=== PATIENT | female | born 1965 | race Caucasian/White ===

== ENCOUNTER 2018-01-15 09:50 | Outpatient (RCR) | payer SELFPAY ==
--- NOTE | 2018-02-07 19:10 | HP.PTEVAL_ITS ---
Patient's Visit Information HERBER LOMAX is a 52 year old F referred to Physical Therapy by Out of Town Doctor with a diagnosis of Low back pain. Date of Evaluation: 01/15/18 Physical Therapist: Salo Ortega - Visit Plan Frequency: 1-2x /Week Duration: 2-4 Weeks Plan: Start with REIL, progression of extension. Add in DN to reduce lumbar muscle spams. Add in neutral spine core strengthening as tolerated. - Subjective Subjective: Pt is here today for her initial evaluation with c/o of low back pain and radiation down her L leg. pt. reports having increased symptoms for ~3 weeks. Pt. reports having increased pain after doing a lot of gardening. Pt. reports trialing chiropractor without success. Pt. does report numbness down her L leg to her calf. No leg weakness noted. Pt. has increased symptoms with sitting and with static standing. Slightly better with walking. Pt. has worse symptoms in morning that loosens up after walking around. Pt. has not trialed any exercises at this point in time. Pt. has not had any imaging at this point in time. Pt. is hopeful to reduce symptoms in order to get back to all recreational activities without limitations. - Pain lumbar spine Pain Intensity (Out of 10): 3 Pain Intensity Range: 1, 6 - Objective POSTURE: Pt. has normal posture in stance. Pt. has equal wt. shift, no signs of lateral shift. PALPATION: Pt. has increased tenderness to palpation of lumbar paraspinals, hypombility noted at L3-L5 with increased symptoms. NEUROLOGICAL: Pt. has normal sensation to light and sharp touch of bilateral LEs. Pt. has 2+ patellar and achilles DTR bilaterally. Pt. is able to rise on heels and toes without issues. ROM: LUMBAR SPINE: flexion min loss increase NW, ext min loss increase NW, SB nil loss NE bilat, rotation nil loss bilat NE. Pt.had decreased symptoms with prone lying, improved further with prone prop and best with REIL. No symptoms in calf after REIL. MMT: Pt. has 5/5 BLE strength, core- fair. No signs of lateral hip weakness. GAIT: Pt. has mild increase in lateral hip sway , no pain with walking. Slight flexion noted. STAIRS: No issues, reciprocal pattern. - Goals Goal 1:: Pt. to be I with HEP. Goal Time Frame: 2-4 Weeks Goal 2:: Pt. to have no pain with walking. Goal Time Frame: 2-4 Weeks Goal 3:: Pt. to sleep throughout the night without increase in symptoms. Goal Time Frame: 4-6 Weeks Goal 4:: Pt. to have full lumbar ROM without increase in symptoms. Goal Time Frame: 2-4 Weeks Goal 5:: Pt. to resume all recreational activities without increase in symptoms. Goal Time Frame: 4-6 Weeks - Rehabilitation Potential Physical Therapy Diagnosis: Pt. has signs and symptoms consistent with lumbar derrangement. Pt. had positive results with REIL and with DN to reduce muscle spasms. Pt. would benefit from continued REIL, reduction in muscle gaurding and progression to core strengthening to reduce reoccurance. Rehabilitation Potential: Excellent - Anticipated Interventions Patient/Client Instruction: Educate patient on: Condition, Plan of Care, Risk Factors, Benefits of Fitness Program For the Purpose of:: To improve decision making, To facilitate caregiver knowledge, To improve self management, To prevent re-injury, To improve ability to perform tasks related to life management, To improve tolerance to ADL's Therapeutic Exercise to Include: Strength training, Power training, Endurance training, Body mechanics, Postural training, Flexibilty training, Passive ROM, Active ROM, Dynamic Lumbar Stabilization, Leti Exercises For the Purpose of:: To decrease pain, To increase ROM, To improve nutrient delivery to tissue, To increase oxygenation perfusion, To improve muscle performance and motor function, To improve ability to perform ADL's, To increase tolerance to activity/condition/position, To improve health of tissue, To decrease soft tissue restriction, To increase flexibility/ROM Manual Therapy Techniques to Include: Trigger point massage, Mobilization, Manipulation, Passive ROM, Functional dry needling, Soft tissue mobilization For the Purpose of:: To decrease pain, To increase ROM, To improve nutrient delivery to tissue, To increase oxygenation perfusion, To improve muscle performance and motor function Thank you for the opportunity to evaluate your patient. For Medicare and Medicare HMO plans, please review the plan of care and approve it. It will need to be FAXED BACK to us at [phone] for Medicare purposes. Please let me know if there are questions or concerns regarding this plan of care. Physician Signature: Date:
--- NOTE | 2018-06-01 13:04 | HP.PT.NRP ---
HP - Discharge Summary (1) - Patient Information HERBRE LOMAX was seen in my office for initial evaluation on 01/15/18. The following Plan of Care was established for this patient: Initial Frequency: 1-2x /Week Initial Duration: 2-4 Weeks - Anticipated Interventions Patient/Client Instruction: Educate patient on: Condition, Plan of Care, Risk Factors, Benefits of Fitness Program For the Purpose of:: To improve decision making, To facilitate caregiver knowledge, To improve self management, To prevent re-injury, To improve ability to perform tasks related to life management, To improve tolerance to ADL's Therapeutic Exercise to Include: Strength training, Power training, Endurance training, Body mechanics, Postural training, Flexibilty training, Passive ROM, Active ROM, Dynamic Lumbar Stabilization, Leti Exercises For the Purpose of:: To decrease pain, To increase ROM, To improve nutrient delivery to tissue, To increase oxygenation perfusion, To improve muscle performance and motor function, To improve ability to perform ADL's, To increase tolerance to activity/condition/position, To improve health of tissue, To decrease soft tissue restriction, To increase flexibility/ROM Manual Therapy Techniques to Include: Trigger point massage, Mobilization, Manipulation, Passive ROM, Functional dry needling, Soft tissue mobilization For the Purpose of:: To decrease pain, To increase ROM, To improve nutrient delivery to tissue, To increase oxygenation perfusion, To improve muscle performance and motor function This patient was last seen in our office 01/15/18. Pertinent comments regarding their Physical therapy will appear below: Pt. was seen for her initial evaluation self pay dry needling. Pt. was seen for 1 visit and has not been back since. Pt. will be DC from PT at this point in time. At this point I will be discontinuing this patient from physical therapy. I would be happy to see this patient again in the future if found appropriate by the physician. Thank you! Salo Ortega
== END 2018-01-15 19:00 | disposition home or self-care (01) ==
LOC: PT 09:50
PROVIDERS: Family Provider Family Medicine; PCP Family Medicine
DX: R69 Illness, unspecified (principal)

== ENCOUNTER 2018-01-22 11:42 | Day surgery (SDC) | payer BC, SELFPAY ==
[2018-01-22 12:11] VITALS: BP 117/73; PULSE 64; RESP 16; TEMP 36.4; O2SAT 100; BMI 28.2
[2018-01-22] MEDS: Cefazolin 2 GM in 0.9% Normal Saline 100 ML IV (13:48)
[2018-01-22 14:49] VITALS: BP 117/73; BP 132/75; PULSE 72; RESP 16; TEMP 36.6; O2SAT 100
--- NOTE | 2018-01-22 14:49 | DCINST_ITS ---
Discharge Diet: Light diet - advance as tolerated Discharge Activity: Return to Normal Activity, May not drive while taking narcotic pain medications. May shower in (days): 1 May resume sexual activity in: 6 weeks Call your doctor if your incision/area has: Continuous Slow Oozing, Sudden Increased Bleeding, Increased Pain/ Swelling, Increased Redness, Swelling at the incision site Call your doctor if you observe: Fever of 101 or Higher, Inability to urinate, Uncontrolled pain Suture Line Care: Avoid Pulling/Pushing, Avoid Pinching/Bending Instructions: Stress Urinary Incontinence: Having Midurethral Sling Surgery Allergies/Adverse Reactions: Allergies No Known Allergies Allergy (Verified 01/14/18 08:46) Medications to take at Discharge Ciprofloxacin [Cipro] 500 mg PO BID #6 tab 01/22/18 Hydrocodone/Acetaminophen [[place] 5-325 Tablet] 1 ea PO Q4H PRN PRN 5 Days #14 tab 01/22/18 The following prescriptions were given: Hydrocodone/Acetaminophen [[place] 5-325 Tablet] 1 ea PO Q4H PRN PRN 5 Days #14 tab PRN Reason: Pain Ciprofloxacin [Cipro] 500 mg PO BID #6 tab Primary Care Physician: Santos Rolle III, MD [Primary Care Provider] - Please Follow Up With: Gregor Ann MD When: please call to make an appointment 2-4 weeks
--- NOTE | 2018-01-22 14:58 | OP.PCM_ITS ---
Report of Operation Date of Procedure: 01/22/18 Pre-Operative Diagnosis: stress incontinence Post-Operative Diagnosis: same Surgery/Procedure Performed:: cystoscopy, placement of tension free vaginal sling with mesh Description of Surgical Findings:: 52-year-old female with a history of stress incontinence that over the course of several years is now been getting worse and worse and she has to wear several pads during the daytime and cannot exercise because she has significant leakage with any activity, running, jogging, etc. in the office she was found to have a hypermobile urethra. Denies any symptoms of urge incontinence. Does not have any urgency or frequency. Has classic stress incontinence. 52-year-old female who is elected to undergo placement of a tension-free vaginal sling with mesh we discussed the risks of the procedure including infection, bleeding, erosion of the mesh into the vagina, urethra, bladder, formation of problems from the mesh, needing more surgery to correct the mesh, failure of the mesh to control leakage, failure of the mesh to control leakage to the patient's satisfaction, development of de nidia stress incontinence and urge incontinence. After reviewing these outcomes and explained how the procedure was done, all her questions were answered and she agreed to proceed. Procedure note patient was taken back to the operating room at the smooth induction of general anesthesia she was placed supine on the table then in dorsal lithotomy position making sure all the pressure points were padded properly, the urethra and vaginal area and lower abdomen were prepped and draped in usual sterile fashion, placed the catheter into the bladder, marked out the bladder neck and marked out the mid urethra below the urethra. I then made an incision in the vaginal mucosa below the mid urethra about 2 cm in size , I then used curved Metzenbaum scissors to dissect laterally from the incision underneath the urethra into the space of Retzius below the pubic arch on both sides after creating the space that I was able to palpate the inferior aspect of the pubic rami on both sides. I then went superiorly and identified the midline and went 2 cm in the midline on the right side and the left side and a small incision in the skin above the pubic bone, I then used the first suprapubic trocar a lighted up with her shoulder and then passed the trocar behind the pubic bone into the incision below the urethra left the trocar in place and then went inside the bladder with a cystoscope inspected the entire bladder she had some minor trigonitis in squamous changes in the trigone left and right ureteral orifice was normal the bladder wall is nice and smooth no trabeculation or abnormality I filled the bladder up completely and there was no sign of perforation or injury from the bladder and passing the first trocar. I then grabbed the end of the trocar to the sling and passed the suture up up on the left side and then snapped the suture with a hemostat. The bladder was then drained to place a catheter back in the bladder and then went top down and passed a second trocar on the right side again hugging the pubic bone and then passing the trocar through inspected both the fornices and make sure that there is no perforation of the fornices and the trocar only went through the vaginal opening the midline. I then took out the catheter and did a cystoscopy was 70 and 30? lens again I distended the bladder really well and checked the anterior bladder and there was no perforation or injury to the bladder. I checked the urethra and there is no injury or perforation to the urethra. At this point then I drain the bladder with a catheter back in and then grabbed the other end of the sling and passed this up I then put a snap on the same sling to help retention and then I pulled up both slings edges up all the way up and then I put the catheter in and I made sure the sling was below the urethra with space and then I pulled the sling on both sides to tighten up once a sling look like in proper position below the urethra a few millimeters of space between the urethra and the sling I then cut the sleeves of the sling and then pulled back on the plastic sleeve to release the sling. No more tensioning was done on the sling I inspected the sling is nice and loose below the urethra nice and flat no kinking and turning I then tucked the vaginal mucosa back over the top of the sling, I cut off the excess sling material and on top I buried the sling material on top deep into the fat and then I closed the midline urethral incision with interrupted 3-0 Vicryls. I then placed Dermabond glue on the 2 small incisions suprapubically. I performed a cystoscopy there was no injury or damage to the urethra there is no tenting of the urethra the urethra is nice and smooth inside the bladder was nice and smooth no perforation damage or injury injury to the bladder was noted the bladder was fairly well distended. I then drained the bladder completely there was no bleeding from the incision sites the bladder was left empty no catheter was left and the patient was taken back to the PACU in good condition and will see if she can urinate normally go home without a catheter. She will be given instructions to follow-up in a few weeks for postop check. Type of Anesthesia:: General Drains: none - Admit VTE Documentation VTE Present on Admission: No VTE Mechan Device Prophylaxis: SCD's VTE Pharm Prophylaxis ordered?: No Reason prophylaxis not ordered:: Treatment Not Indicated
[2018-01-22 15:00] VITALS: BP 117/73; BP 122/66; PULSE 66; RESP 16; O2SAT 100
[2018-01-22 15:15] VITALS: BP 117/73; BP 126/68; PULSE 62; RESP 16; O2SAT 100
[2018-01-22 15:31] VITALS: BP 117/73; BP 125/72; PULSE 68; RESP 16; TEMP 36.2; O2SAT 100
[2018-01-22 16:45] VITALS: BP 117/73
== END 2018-01-22 16:46 | disposition home or self-care (01) ==
LOC: SDC 11:45 → AC 11:50
PROVIDERS: Family Provider Family Medicine; PCP Family Medicine; Visit Provider Urology
PROC: 0TJB8ZZ Inspection of Bladder, Via Natural or Artificial Opening Endoscopic (ICD-10-PCS; CPT 57288; principal; 2018-01-22 13:00)
DX: N39.46 Mixed incontinence (principal)
CPT/HCPCS: 00860; 57288; J7120; C1771; J2405

== ENCOUNTER → 2019-04-01 10:36 | Outpatient (CLI) | payer BC, SELFPAY ==
--- NOTE | 2019-04-01 10:39 | BI_ITS ---
MAMMOGRAPHY - BILATERAL SCREENING REASON FOR EXAM: Female, 54 years old. Routine annual screening examination. PERTINENT HISTORY: Non-contributory. TECHNIQUE: Digital bilateral breast aleksandar (3D mammographic acquisition) in the CC and MLO projections. 2-D mediolateral oblique (MLO) and craniocaudad (CC) views of both breasts were obtained. CAD: Full Field Digital Mammography with Computer Added Detection was performed. COMPARISON: Comparison is made with prior examination May 08, 2017 and December 28, 2015. FINDINGS: Breast Composition: The breasts are heterogeneously dense, which may obscure small masses. There are no dominant masses or suspicious calcifications. No other significant abnormalities are identified. There has been no significant change since the prior study. BI/SCREEN MAMM (CAD) W/ALEKSANDAR BILAT IMPRESSION: Stable bilateral screening mammogram. Yearly follow-up mammogram recommended. (A) ASSESSMENT CATEGORY: BIRADS Category 1: Negative. A letter regarding these results will be sent to the patient by the facility within 30 days. Approximately 10% of breast cancers are not detected by mammography. A normal mammogram should not delay biopsy of a clinically suspicious abnormality. [id number] Electronically Signed: Bruce Hobbs, at 12:57 EDT , Service support ,
== END ==
PROVIDERS: Family Provider Family Medicine; PCP Family Medicine; Referring Provider Obstetrics & Gynecology; Visit Provider Obstetrics & Gynecology
DX: Z12.31 Encounter for screening mammogram for malignant neoplasm of breast (principal)
CPT/HCPCS: 77063; 77067

== ENCOUNTER → 2019-05-09 | Outpatient (CLI) | payer BC, SELFPAY ==
--- NOTE | 2019-05-09 11:25 | RAD_ITS ---
HISTORY: CHRONIC LOW BACK PAIN TECHNIQUE: AP and lateral views of the lumbar spine Number of images including paperwork: 2 COMPARISON: None FINDINGS: VERTEBRAE: 5 lumbar type vertebrae. No acute fracture. VERTEBRAL ALIGNMENT: No traumatic subluxation. DISKS AND JOINTS: Mild multilevel disc space narrowing. Facet arthropathy, most pronounced L4-S1. SOFT TISSUES: Unremarkable paraspinous soft tissues. RAD/Lumbar Spine 2 or 3 Views IMPRESSION: 1. No acute osseous abnormality. 2. Degenerative changes of the lumbar spine. at 0045 Reported and signed by: Evelia Valenzuela MD Electronically Signed: Evelia Valenzuela MD at 0:45 EDT Tel , Service support ,
== END | disposition home or self-care (01) ==
PROVIDERS: Family Provider Family Medicine; PCP Family Medicine; Referring Provider Anesthesiology Pain Medicine; Visit Provider Anesthesiology Pain Medicine
DX: M54.5 Low back pain (principal)
CPT/HCPCS: 72100

== ENCOUNTER → 2019-05-20 | Outpatient (CLI) | payer BC, SELFPAY ==
--- NOTE | 2019-05-20 07:00 | MRI_ITS ---
HISTORY: back and RIGHT hip and leg pain x 2 years COMPARISON: Lumbar spine radiographs 05/09/2019 TECHNIQUE: Multiplanar, multisequence MRI of the lumbar spine without IV contrast. FINDINGS: Marrow signal intensity appears unremarkable. Conus ends at L1-2. Unremarkable paraspinous soft tissues. L1-L2: A small central disc extrusion is present at L1-2 with cranial extension of disc material. No significant canal or foraminal stenosis. L2-L3: Unremarkable. L3-L4: Minimal disc bulging. Facet and ligament hypertrophy. L4-L5: Mild disc bulging. Facet and ligament hypertrophy. Mild to moderate central canal stenosis. No significant foraminal stenosis. L5-S1: Large right paracentral disc protrusion with lateral recess stenosis, disc abutting the right S1 nerve root. Facet and ligament hypertrophy with mild central canal stenosis. MRI/Spine Lumbar (Routine) IMPRESSION: 1. Right paracentral disc protrusion at L5-S1 with lateral recess stenosis and disc abutting the S1 nerve root. 2. Small disc extrusion at L1-2. 3. Additional findings above. at 0734 Reported and signed by: Evelia Valenzuela MD Electronically Signed: Evelia Valenzuela MD at 7:34 EDT Tel , Service support ,
== END | disposition home or self-care (01) ==
LOC: MRI 06:28
PROVIDERS: Family Provider Family Medicine; PCP Family Medicine; Referring Provider Anesthesiology Pain Medicine; Visit Provider Anesthesiology Pain Medicine
DX: M54.9 Dorsalgia, unspecified (principal); M79.606 Pain in leg, unspecified
CPT/HCPCS: 72148

== ENCOUNTER 2019-06-10 10:57 | Outpatient (RCR) | payer BC, SELFPAY ==
--- NOTE | 2019-06-10 14:06 | HP.PTEVAL_ITS ---
Patient's Visit Information HERBER LOMAX is a 54 year old F referred to Physical Therapy by Halie Stubbs with a diagnosis of INTERVERTEBRAL DISC DISORDER WITH RADICULOPATHY LUMBAR. Date of Evaluation: 06/10/19 Physical Therapist: Edyta Taylor, PT, Cert MDT - Visit Plan Frequency: 2x /Week Duration: 2-4 Weeks Plan: POSTURE CORRECTION/STRENGTHENING, INSTRUCTION IN APPROPRIATE BODY MECHANICS AND ACTIVITY MODIFICATIONS. CORE STRENGTHENING. INSTRUCT IN SAIMA LE SUPINE DURAL STRETCHING. INDEP EX INSTRUCTION. CONSIDER 1-2 AQUATIC SESSIONS (PATIENT HAS A POOL). 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 Disability: NO. Present symptoms: LOW BACK PAIN, RIGHT THIGH PAIN. NO SX'S BELOW THE KNEE. NO NUMBESS OR TINGLING FOR A FEW WEEKS. Present since: ABOUT 2 YEARS AGO. Pain Scale: WORST 4/10, LEAST 1/10. Currently: 2/10. IMPROVING. 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 Symptoms at onset: LOW BACK AND RIGHT THIGH. Worse: CERTAIN EX'S - SUPINE WITH LEGS ELEVATED AND PRONE ALT ARM LEG LIFTS, STANDING. Better: RUBBING IT, STRETCHING INTO COBRA, SKTC, PREDNISONE - ENDED 7 DAY ABOUT A WEEK AGO. Disturbed sleep: NO. Previous history/Previous treatment: MEDICINE, CHIROPRACTOR X 3 WITH TEMPORARY HELP, ONCE A MONTH MASSAGE - HELPS, DRY NEEDLING - TEMPRARY RELIEF. PATIENT REPORTS THAT PREDNISONE HAS HELPED SO MUCH THAT SHE IS NOT CONSIDERING ANY INJECTIONS AT THIS POINT AND WANTS TO TRY PT FIRST. NO BACK SURGICAL CONSULTS. Coughing/sneezing/straining: NEGATIVE. Gait: NORMAL. Difficulty initiating urinatin: NO. Accidents: NO. Unexplained weight loss: NO. Imaging: LUMBAR IMAGING VIA DR. PORTILLO: Marrow signal intensity appears unremarkable. Conus ends at L1-2. Unremarkable paraspinous soft tissues. L1-L2: A small central disc extrusion is present at L1-2 with cranial. extension of disc material. No significant canal or foraminal stenosis. L2-L3: Unremarkable. L3-L4: Minimal disc bulging. Facet and ligament hypertrophy. L4-L5: Mild disc bulging. Facet and ligament hypertrophy. Mild to moderate. central canal stenosis. No significant foraminal stenosis. L5-S1: Large right paracentral disc protrusion with lateral recess. stenosis, disc abutting the right S1 nerve root. Facet and ligament. hy pertrophy with mild central canal stenosis. MRI/Spine Lumbar (Routine). IMPRESSION: 1. Right paracentral disc protrusion at L5-S1 with lateral recess stenosis. and disc abutting the S1 nerve root. 2. Small disc extrusion at L1-2. 3. Additional findings above. PMH: UNREMARKABLE. Recent major surgery: UNREMARKABLE - Objective Sitting/Standing Posture: FAIR. Lordosis: REDUCED. Lateral shift: NO. Relevant shift: N/A. Active Correction of posture: NE. Other Observations: INDEP GAIT AND TRANSFERS WITH NO GROSS DEVIATIONS NOTED. Motor deficit: SAIMA LE'S 5/5 WITH MMT'ING. Sensory deficit: NO. ROM deficit: NO. Reflexes: NT. Dural Signs: NEGATIVE SAIMA LE'S. Lumbar mvmt loss: flex - NIL. ext - MIN - INCREASES RIGHT BUTTOCK. R SG - NIL - NE. L SG - MIN - NE. Core strength: FAIR. Palpation: VERY TIGHT SAIMA PARASPINALS. NO ACUTE TENDERNESS. - Goals Goal 1:: DECREASE C/O LOW BACK AND RIGHT THIGH PAIN Goal Time Frame: 4-6 Weeks Goal 2:: IMPROVE LIFTING, SITTING, STANDING AND EMPLOYMENT/HOMEMAKING FUNCTION Goal Time Frame: 4-6 Weeks Goal 3:: INSTRUCT IN PROPHYLAXIS Goal Time Frame: 4-6 Weeks - Rehabilitation Potential Rehabilitation Potential: Good - Anticipated Interventions Patient/Client Instruction: Educate patient on: Condition, Plan of Care, Risk Factors, Benefits of Fitness Program For the Purpose of:: To improve self management Therapeutic Exercise to Include: Strength training, Body mechanics, Postural training, In an aquatic setting, Dynamic Lumbar Stabilization For the Purpose of:: To decrease pain, To improve muscle performance and motor function, To increase tolerance to activity/condition/position, To improve ability of physical actions for home/community/work/leisure Thank you for the opportunity to evaluate your patient. For Medicare and Medicare HMO plans, please review the plan of care and approve it. It will need to be FAXED BACK to us at [phone] for Medicare purposes. For Medicare only, by signing this I certify the plan of care. Please let me know if there are questions or concerns regarding this plan of care. Physician Signature: Date:
--- NOTE | 2019-08-19 16:19 | HP.PT.NRP ---
HP - Discharge Summary (1) - Patient Information HERBER LOMAX was seen in my office for initial evaluation on 06/10/19. The following Plan of Care was established for this patient: Initial Frequency: 2x /Week Initial Duration: 2-4 Weeks - Anticipated Interventions Patient/Client Instruction: Educate patient on: Condition, Plan of Care, Risk Factors, Benefits of Fitness Program For the Purpose of:: To improve self management Therapeutic Exercise to Include: Strength training, Body mechanics, Postural training, In an aquatic setting, Dynamic Lumbar Stabilization For the Purpose of:: To decrease pain, To improve muscle performance and motor function, To increase tolerance to activity/condition/position, To improve ability of physical actions for home/community/work/leisure This patient was last seen in our office 06/10/19. Pertinent comments regarding their Physical therapy will appear below: This patient has not returned to Physical Therapy and is appropriate to return to MD for further follow-up as needed. At this point I will be discontinuing this patient from physical therapy. I would be happy to see this patient again in the future if found appropriate by the physician. Thank you! Edyta Taylor, PT, Cert MDT
== END 2019-06-10 19:00 | disposition home or self-care (01) ==
LOC: PT 10:57
PROVIDERS: Family Provider Family Medicine; PCP Family Medicine; Referring Provider Physician Assistant; Visit Provider Physician Assistant
DX: M51.16 Intervertebral disc disorders with radiculopathy, lumbar region (principal)
CPT/HCPCS: 97161; 97530

== ENCOUNTER 2020-11-09 16:04 | Outpatient (RCR) | payer OTHER, SELFPAY ==
[2020-11-09] MEDS: COVID-19 VACC, MRNA(PFIZER)/PF 30 MCG/0.3 ML SYRINGE IM (07:59)
[2020-11-30] MEDS: COVID-19 VACC, MRNA(PFIZER)/PF 30 MCG/0.3 ML SYRINGE IM (07:46)
== END 2020-11-09 23:59 ==
LOC: IMMUN 16:04
PROVIDERS: PCP Family Medicine; Visit Provider Family Medicine
DX: Z23 Encounter for immunization (principal)
CPT/HCPCS: 0001A; 0002A; 91300

== ENCOUNTER 2021-05-09 18:30 | Outpatient (RCR) | payer OTHER, SELFPAY ==
--- NOTE | 2021-04-22 14:51 | HP.PTEVAL_ITS ---
Patient's Visit Information HERBER LOMAX is a 56 year old F referred to Physical Therapy by JEANNETTE Angulo with a diagnosis of BPPV. Date of Evaluation: 04/22/21 Physical Therapist: Vic Villagran, LUIST, OCS, CSCS - Visit Plan Frequency: 2x /Week Duration: 4-6 Weeks Plan: weekly x 2-4 for positional interventions./exercises. - Subjective Really bad episode of vertigo 10 yrs ago. Has been great since then until end of October where it started insidiously. Got better adn worse since then. Has seen Dr. Salguero 3x and had gary maneuver. trained to do it. Has gotten rid of 90% of it but has a little bit left. It gets her in group exercise class down on floor to do sit up or whenever she lies flat on back. Massage has to have table elevated a lttle bit. Otherwise, she gets some dizzyness. some days does gary 5x. Gets spinning dizzy for a minute or so. Then some car sickness afterwards sometimes for all day. Activities at this point are close to normal but has to be careful with everything. Sleep is OK but not to the fullest as she feels it when she rolls over. or lies down. 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 It effects concentration level. - Objective Walks normal and safe. Trasnfers I and safe. Steps up and down reciprocally even jogging without a problem. Cervical aROM WNL and without pain. R Hallpike shauna-. L hallpike shauna + for up torsional 12 second nystagmus and dizzyness. Treated with Gary x2, then kneeling positional intervention x1. Taught BD ex. Walked out feeling OK with good balance - Balance/Special Test Scores Functional Gait Assessment Score: 30 % Disability: 0 Dizziness Score: 34 - Goals Goal 1:: Dizzyness with lying, rolling in bed. Goal Time Frame: 2-4 Weeks Goal 2:: No Interrupted activity, workout due to dizzyness. Goal Time Frame: 2-4 Weeks Goal 3:: Pt feel 100% better iwth dizzyness Goal Time Frame: 2-4 Weeks - Rehabilitation Potential Physical Therapy Diagnosis: L post canal BPPV Rehabilitation Potential: Fair - Anticipated Interventions Patient/Client Instruction: Educate patient on: Condition, Plan of Care For the Purpose of:: To increase tolerance to activity/condition/position Comment: poisitonal treatements, ex, maneuvers. For the Purpose of:: To increase tolerance to activity/condition/position Thank you for the opportunity to evaluate your patient. For Medicare and Medicare HMO plans, please review the plan of care and approve it. It will need to be FAXED BACK to us at [phone] for Medicare purposes. For Medicare only, by signing this I certify the plan of care. Please let me know if there are questions or concerns regarding this plan of care. Physician Signature: Date:_
--- NOTE | 2021-05-09 18:59 | HP.PTREVAL ---
Osmar Piper, EARL-C, It has been my pleasure to treat HERBER LOMAX over the last 3 visits for BPPV. Please see the progress note below for an update on the physical therapy plan of care! Subjective: I thought initially last treatmwent helped. [place] better Thursday and Thursday and then Thursday could only get 3 reps. Has not got past 5 reps. Last 3 days no better or worse. Got dizzy during workout last night feeling OK on bike but floor ex make her dizzy. No CHAMBERS and no neck pain. Sometimes feels like has tight ballcap on. Objective/Function: - B hallpike shauna today, both directions make her slightly dizzy but no nystagmus obvious to my naked eye today like thge last two weeks. - roll test. Oculomotor: - skew eye deviation. - ocular tilt. - head thrust. normal pursuit and saccades, normal VOR without dizzyness today. - nystagmus with head shake or gaze. neck ROM is WFL and without symptoms. Only symptoms today are some dizzyness with B hallpike shauna and looking up. Howeveer, patient is not coming along as expected with positional treatments with no improvment over last two weeks. Approipriate to see doctor for next step and possibly VNG would be helpful to clarify situation. Plan Plan: pt to call after she sees Dr. Lemos on Thursday ENT. (Already scheduled.) May continue treatment if ordered. Balance/Gait/Functional tests - Balance/Special Test Scores Functional Gait Assessment Score: 30 % Disability: 0 Dizziness Score: 34 Goals Goal 1:: Dizzyness with lying, rolling in bed. Goal Time Frame: 2-4 Weeks Goal Progress: Not Progressing Goal 2:: No Interrupted activity, workout due to dizzyness. Goal Time Frame: 2-4 Weeks Goal Progress: Not Progressing Goal 3:: Pt feel 100% better iwth dizzyness Goal Time Frame: 2-4 Weeks Goal Progress: Not Progressing Anticipated Interventions Patient/Client Instruction: Educate patient on: Condition, Plan of Care For the Purpose of:: To increase tolerance to activity/condition/position Comment: poisitonal treatements, ex, maneuvers. For the Purpose of:: To increase tolerance to activity/condition/position Please do not hesitate to contact me at [phone] by phone or if you have questions or concerns regarding this new plan of care! Sincerely, Vic Villagran, DPT, OCS, CSCS
--- NOTE | 2021-07-08 14:20 | HP.PT.NRP ---
HERBER LOMAX was seen in my office for initial evaluation on 04/22/21. The following Plan of Care was established for this patient: Initial Frequency: 2x /Week Initial Duration: 4-6 Weeks Patient/Client Instruction: Educate patient on: Condition, Plan of Care For the Purpose of:: To increase tolerance to activity/condition/position For the Purpose of:: To increase tolerance to activity/condition/position This patient was last seen in our office 05/09/21. Pertinent comments regarding their Physical therapy will appear below: Pt seen 3 visits and was referred to doctor due to lack of progress. She has visited ENT and will be discontinued from PT. At this point I will be discontinuing this patient from physical therapy. I would be happy to see this patient again in the future if found appropriate by the physician. Thank you! Vic Villagran, DPT, OCS, CSCS Balance/Gait/Functional tests - Balance/Special Test Scores Functional Gait Assessment Score: 30 % Disability: 0 Dizziness Score: 34
== END 2021-05-09 19:00 | disposition home or self-care (01) ==
LOC: PT 18:30
PROVIDERS: PCP Family Medicine; Referring Provider Nurse Practitioner Family; Visit Provider Nurse Practitioner Family
DX: H81.12 Benign paroxysmal vertigo, left ear (principal)
CPT/HCPCS: 97161; 97530

== ENCOUNTER → 2022-01-16 | Outpatient (CLI) | payer OTHER, SELFPAY ==
--- NOTE | 2022-01-16 08:41 | BI_ITS ---
MAMMOGRAPHY - BILATERAL SCREENING REASON FOR EXAM: Female, 56 years old. Routine annual screening examination. PERTINENT HISTORY: Non-contributory. TECHNIQUE: Digital bilateral breast aleksandar (3D mammographic acquisition) in the CC and MLO projections. 2-D mediolateral oblique (MLO) and craniocaudad (CC) views of both breasts were obtained. CAD: Full Field Digital Mammography with Computer Added Detection was performed. COMPARISON: Screening mammogram from 04/01/2019, 05/08/2017, 04/13/2015. Diagnostic mammogram and left breast ultrasound from 12/28/2015. FINDINGS: Breast Composition: The breasts are heterogeneously dense, which may obscure small masses. There is a new grouping of calcifications in the left upper slightly lateral breast, approximately 2.8 cm posterior to the nipple. Further assessment with spot magnification and true lateral views is recommended. Scattered benign-appearing calcifications in the right breast. No dominant mass. No other significant abnormalities are identified. BI/SCRN MAMM (CAD)W/ALEKSANDAR BILAT IMPRESSION: Further imaging evaluation recommended, as described above. (E) Recall Side: Left Breast ASSESSMENT CATEGORY: BIRADS Category 0: Incomplete. Need additional imaging evaluation. A letter regarding these results will be sent to the patient by the facility within 30 days. Approximately 10% of breast cancers are not detected by mammography. A normal mammogram should not delay biopsy of a clinically suspicious abnormality. [id number] Electronically Signed: Edilberto Yusuf, at 17:17 EDT ,
== END | disposition home or self-care (01) ==
LOC: OPBI 08:39
PROVIDERS: PCP Family Medicine; Visit Provider Nurse Practitioner Women's Health
DX: Z12.31 Encounter for screening mammogram for malignant neoplasm of breast (principal)
CPT/HCPCS: 77063; 77067

== ENCOUNTER → 2022-01-27 | Outpatient (CLI) | payer OTHER, SELFPAY ==
--- NOTE | 2022-01-27 13:40 | BI_ITS ---
MAMMOGRAPHY - UNILATERAL DIAGNOSTIC: LEFT BREAST REASON FOR EXAM: Female, 56 years old. Abnormal screening mammogram. PERTINENT HISTORY: Non-contributory. TECHNIQUE: Compression magnification spot views were obtained. CAD: Full Field Digital Mammography with Computer Added Detection was performed. COMPARISON: Comparison is made with prior study dated 01/16/2022. FINDINGS: Breast Composition: The breasts are heterogeneously dense, which may obscure small masses. No suspicious calcifications are seen on these additional views. No other significant abnormalities are identified. BI/DIAG MAMM W/CAD, UNILAT IMPRESSION: Negative unilateral diagnostic mammogram. Yearly followup mammogram recommended. (A) ASSESSMENT CATEGORY: BIRADS Category 1: Negative. A letter regarding these results will be sent to the patient by the facility within 30 days. Approximately 10% of breast cancers are not detected by mammography. A normal mammogram should not delay biopsy of a clinically suspicious abnormality. Electronically Signed: Bruce Hobbs MD at 15:37 EDT ,
== END | disposition home or self-care (01) ==
LOC: OPBI 13:36
PROVIDERS: PCP Family Medicine; Referring Provider Nurse Practitioner Women's Health; Visit Provider Nurse Practitioner Women's Health
DX: R92.8 Other abnormal and inconclusive findings on diagnostic imaging of breast (principal)
CPT/HCPCS: 77065